=== PATIENT | female | born 1960 | race American Indian/Alaskan Native ===

== ENCOUNTER 2022-07-28 17:18 | Emergency (ER) | payer MEDICAID ==
[2022-07-28] MEDS: Take Home: Phenazopyridine 95 MG Tab, 4 Tab Pack ONE (18:14)
[2022-07-28] MEDS: Take Home: Sulfamethoxazole/Trimethoprim 800-160 MG Tab, 2 Tab Pack PO ONE (18:14)
[2022-07-28 18:23] VITALS: BP 102/64; PULSE 80
== END 2022-07-28 18:21 | disposition home or self-care (01) ==
LOC: VM.ED 17:18 → MERGE 17:18 → VM.ED 18:21
DX: N39.0 Urinary tract infection, site not specified (principal); E78.00 Pure hypercholesterolemia, unspecified; I10 Essential (primary) hypertension
CPT/HCPCS: 81001; 87086; 87088; 87186; 99283; 99284; A9270-GY

== ENCOUNTER 2022-11-14 05:32 | Emergency (ER) | payer MEDICAID, OTHER ==
[2022-11-14] MEDS: Hydrocortisone Sodium Succinate 100 MG/2 ML SDV IVPUSH ONE (06:05)
[2022-11-14] MEDS ORDERED: Sodium Chloride 0.9% 10 ML Syringe FLUSH PRN (06:21)
[2022-11-14] MEDS ORDERED: Lactated Ringers 1,000 ML IV ONE ×3 (06:22→08:27)
[2022-11-14] MEDS ORDERED: Norepinephrine 4 MG/4 ML SDV ONE (06:39)
[2022-11-14] MEDS: Norepinephrine 4 MG in Dextrose 5% in Water 246 ML IV SCH ×2 (06:50)
[2022-11-14] MEDS: Ciprofloxacin in D5W 400 MG in Premix Bag 1 BAG IV ONE ×2 (06:52)
[2022-11-14 06:58] LABS: PTT,PARTIAL THROMBOPLSTIN TIME 32.1 SEC (20.5-30.9)
[2022-11-14 06:59] LABS: CHLORIDE,CL 108 mmol/L (98-107); SODIUM,NA 141 mmol/L (136-145)
[2022-11-14 07:01] LABS: ANION GAP 16.4 mmol/L (5-15); ESTIMATED GFR 14 mL/min (>=60)
[2022-11-14] MEDS ORDERED: Magnesium Sulfate/Water 100 ML ONE (07:27)
[2022-11-14] MEDS: Magnesium Sulfate/Water 4 GM in Premix Bag 1 BAG IV ONE (07:30)
[2022-11-14 07:34] LABS: CORONAVIRUS COVID-19 NAA NEGATIVE (NEGATIVE)
[2022-11-14 07:35] LABS: RESPIRATORY SYNCYTIAL VIR NAA NEGATIVE (NEGATIVE)
[2022-11-14] MEDS: Piperacillin/Tazobactam 3.375 GM in Sodium Chloride 0.9% 100 ML IV ONE (07:40)
[2022-11-14] MEDS: metroNIDAZOLE/Normal Saline 500 MG in Premix Bag 1 BAG IV ONE (08:07)
[2022-11-14] MEDS: Lactated Ringers 1,000 ML IV ONE ×2 (08:08→08:10)
[2022-11-14 08:45] LABS: BARBITURATE SCREEN,URINE NEGATIVE (NEGATIVE); BENZODIAZEPINES SCREEN,URINE NEGATIVE (NEGATIVE); BUPRENORPHINE SCREEN,URINE NEGATIVE (NEGATIVE); METHAMPHETAMINE SCREEN, URINE NEGATIVE (NEGATIVE); THC SCREEN,URINE 50 NG/ML NEGATIVE (NEGATIVE)
== END 2022-11-14 08:26 | disposition short-term general hospital (02) ==
LOC: VM.ED 05:32
DX: I10 Essential (primary) hypertension (principal); E78.00 Pure hypercholesterolemia, unspecified; I25.2 Old myocardial infarction; M19.90 Unspecified osteoarthritis, unspecified site; E11.9 Type 2 diabetes mellitus without complications; Z79.82 Long term (current) use of aspirin; Z79.84 Long term (current) use of oral hypoglycemic drugs; Z79.899 Other long term (current) drug therapy; Z79.02 Long term (current) use of antithrombotics/antiplatelets; A41.9 Sepsis, unspecified organism; R65.21 Severe sepsis with septic shock; N17.9 Acute kidney failure, unspecified; E83.42 Hypomagnesemia; E87.6 Hypokalemia; E27.1 Primary adrenocortical insufficiency; R77.8 Other specified abnormalities of plasma proteins
CPT/HCPCS: 0241U; 36556; 70450; 71045; 74176; 80053; 80305-QW; 80307; 81001; 82140; 82550; 82803; 83605; 83690; 83735; 84100; 84145; 84443; 84484; 85025; 85610; 85730; 86140; 87040; 87493; 93005; 93010; 96365; 96366; 96367; 96368; 96375; 99284; 99285-25; J0744; J1720; J2543; J3475; J3490; J7050; J7060; J7120

== ENCOUNTER 2023-03-05 22:43 | Emergency (ER) | payer BC, MEDICAID ==
[2023-03-05] MEDS ORDERED: Take Home: Nitrofurantoin Monohydrate/Macrocrystalline 100 MG, 6 Cap Pack PO ONE (23:18)
[2023-03-05 23:39] VITALS: BP 111/66; PULSE 69
[2023-03-06 06:46] LABS: BACTERIA,URINE POC FEW (NOT SEEN); MUCUS,URINE POC FEW (NOT SEEN); RBC,URINE POC 0-5 /HPF (NOT SEEN); SQUAMOUS EPITHELIAL CELLS,UR P RARE /HPF (NOT SEEN)
[2023-03-06 08:29] LABS: APPEARANCE,URINE CLEAR (CLEAR); COLOR,URINE YELLOW (YELLOW)
[2023-03-06 08:30] LABS: BILIRUBIN,URINE NEGATIVE (NEGATIVE); GLUCOSE,URINE >=1000 mg/dL (NEGATIVE); KETONES,URINE NEGATIVE (NEGATIVE); NITRITE,URINE NEGATIVE (NEGATIVE); OCCULT BLOOD,URINE SMALL (NEGATIVE); PROTEIN,URINE NEGATIVE (NEGATIVE); UROBILINOGEN,URINE 0.2 EU/dL (0.2)
[2023-03-06 08:31] LABS: LEUKOCYTE ESTERASE,URINE NEGATIVE (NEGATIVE)
== END 2023-03-05 23:45 | disposition home or self-care (01) ==
LOC: VM.ED 22:43
DX: E11.65 Type 2 diabetes mellitus with hyperglycemia (principal); I25.10 Atherosclerotic heart disease of native coronary artery without angina pectoris; I11.9 Hypertensive heart disease without heart failure; I25.2 Old myocardial infarction; E78.00 Pure hypercholesterolemia, unspecified; Z79.82 Long term (current) use of aspirin; Z79.02 Long term (current) use of antithrombotics/antiplatelets; Z79.899 Other long term (current) drug therapy
CPT/HCPCS: 81001; 81003; 81015; 82947; 99284